=== PATIENT | male | born 1960 | race Caucasian/White ===

== ENCOUNTER 2020-07-30 11:14 | Emergency (ER) | payer OTHER ==
[~2020-07-30] VITALS: Ht 175.3 cm; Wt 99.8 kg
[2020-07-30] MEDS ORDERED: TOPROL XL25 MG PO (11:24)
[2020-07-30] MEDS ORDERED: HYDROCODON-ACE1 EAC7 PO (12:40)
[2020-07-30] MEDS ORDERED: FLEXERIL PO (12:40)
[2020-07-30 12:51] VITALS: BP 126/76
== END 2020-07-30 12:52 | disposition home or self-care (01) ==
LOC: M.ERS 11:14
DX: S13.4XXA Sprain of ligaments of cervical spine, initial encounter (principal); S33.5XXA Sprain of ligaments of lumbar spine, initial encounter; M54.6 Pain in thoracic spine; I10 Essential (primary) hypertension; V89.0XXA Person injured in unspecified motor-vehicle accident, nontraffic, initial encounter; Y93.89 Activity, other specified; Y92.89 Other specified places as the place of occurrence of the external cause; Y99.8 Other external cause status

== ENCOUNTER 2020-08-24 17:35 | Emergency (ER) | payer OTHER ==
[~2020-08-24] VITALS: Ht 177.8 cm; Wt 99.8 kg
[~2020-08-24 17:35] MED LIST: FLEXERIL PO; HYDROCODON-ACE1 EAC7 PO; TOPROL XL25 MG PO
[2020-08-24] MEDS ORDERED: LIPITOR 20 MG T20 M1 PO (17:47)
[2020-08-24] MEDS ORDERED: PERCOCET 5-3251 EACH PO (18:31)
[2020-08-24] MEDS ORDERED: KEFLEX500 M1 PO (18:31)
[2020-08-24] MEDS ORDERED: IBUPROFEN 600600 M1 PO (18:31)
[2020-08-24 18:50] VITALS: BP 144/100
== END 2020-08-24 18:50 | disposition home or self-care (01) ==
LOC: M.ERS 17:35
DX: S61.211A Laceration without foreign body of left index finger without damage to nail, initial encounter (principal); I10 Essential (primary) hypertension; E78.5 Hyperlipidemia, unspecified; Z79.899 Other long term (current) drug therapy; Z88.6 Allergy status to analgesic agent; W29.8XXA Contact with other powered hand tools and household machinery, initial encounter; Y93.89 Activity, other specified; Y92.098 Other place in other non-institutional residence as the place of occurrence of the external cause; Y99.8 Other external cause status